=== PATIENT | male | born 1980 | race Two or more races ===

== ENCOUNTER 2024-05-29 15:05 | Emergency (ER) | payer OTHER ==
[~2024-05-29] VITALS: Ht 185.4 cm; Wt 95.3 kg
== END 2024-05-29 19:52 | disposition home or self-care (01) ==
LOC: ER 15:07 → EDBD 15:07 → ER 16:07
DX: J02.8 Acute pharyngitis due to other specified organisms (principal); Z88.0 Allergy status to penicillin